=== PATIENT | female | born 1945 | race Caucasian/White ===

== ENCOUNTER 2022-05-17 14:25 | Emergency (ER) | payer MEDICARE, OTHER ==
[2022-05-17 14:47] VITALS: BP 120/49; PULSE 73
== END 2022-05-17 15:46 | disposition home or self-care (01) ==
LOC: DL.ED 14:25
DX: S93.602A Unspecified sprain of left foot, initial encounter (principal); E78.00 Pure hypercholesterolemia, unspecified; K21.9 Gastro-esophageal reflux disease without esophagitis; E03.9 Hypothyroidism, unspecified; Z88.8 Allergy status to other drugs, medicaments and biological substances; Z79.899 Other long term (current) drug therapy; X50.1XXA Overexertion from prolonged static or awkward postures, initial encounter
CPT/HCPCS: 73610-LT; 73630-LT; 99282; 99283

== ENCOUNTER 2022-05-31 13:47 | Emergency (ER) | payer MEDICARE, OTHER ==
[2022-05-31] MEDS ORDERED: Amoxicillin/Clavulanate K 875-125 MG Tab PO ONE ×2 (13:48→14:05)
[2022-05-31] MEDS ORDERED: Diphtheria,Pertussis(Acell),Tetanus Vaccine 0.5 ML Syringe IM ONE (13:58)
[2022-05-31 14:04] VITALS: BP 148/64; PULSE 68
[2022-05-31] MEDS ORDERED: Amoxicillin/Clavulanate K 875-125 MG Tab ONE (14:15)
== END 2022-05-31 14:32 | disposition home or self-care (01) ==
LOC: DL.ED 13:47
DX: S50.871A Other superficial bite of right forearm, initial encounter (principal); E78.00 Pure hypercholesterolemia, unspecified; E03.9 Hypothyroidism, unspecified; K21.9 Gastro-esophageal reflux disease without esophagitis; Z88.8 Allergy status to other drugs, medicaments and biological substances; Z79.899 Other long term (current) drug therapy; W54.0XXA Bitten by dog, initial encounter; Z23 Encounter for immunization
CPT/HCPCS: 90471; 90715; 99283; A9270

== ENCOUNTER 2023-07-08 06:17 | Day surgery (SDC) | payer MEDICARE, BC ==
[2023-07-08] MEDS ORDERED: Proparacaine 0.5% Ophth Soln 15 ML Bottle ONE (06:32)
[2023-07-08] MEDS ORDERED: Cataract Ophth Solution EYERT ONE (07:00)
[2023-07-08] MEDS ORDERED: Povidone-Iodine 5% Sterile Ophth Soln 30 ML Bottle EYERT ONE ×2 (07:00→08:03)
[2023-07-08] MEDS ORDERED: Timolol Maleate 0.5% Ophth Soln 5 ML Bottle EYERT ONE (07:00)
[2023-07-08] MEDS ORDERED: Proparacaine 0.5% Ophth Soln 15 ML Bottle EYERT ONE ×2 (07:00→08:02)
[2023-07-08] MEDS ORDERED: Phenylephrine 10% Ophth Soln 5 ML Bot EYERT PRN (07:00)
[2023-07-08] MEDS ORDERED: Ondansetron 4 MG/2 ML SDV IVPUSH PRN (07:00)
[2023-07-08] MEDS ORDERED: Moxifloxacin 0.5% Ophth Soln 3 ML Bottle EYERT ONE (07:00)
[2023-07-08] MEDS ORDERED: Tropicamide 1% Ophth Soln 15 ML Bottle EYERT ONE (07:00)
[2023-07-08] MEDS ORDERED: Acetaminophen 500 MG Tab PO PRN (08:00)
[2023-07-08] MEDS ORDERED: Acetaminophen/Codeine 300-30 MG Tab PO PRN (08:00)
[2023-07-08] MEDS ORDERED: Acetaminophen 325 MG Tab PO PRN (08:00)
[2023-07-08] MEDS ORDERED: Tobramycin 0.3% Ophth Oint 3.5 GM Tube EYERT ONE (08:03)
[2023-07-08] MEDS ORDERED: Diclofenac Sodium 0.1% Ophth Soln 5 ML Bottle EYERT ONE (08:03)
[2023-07-08] MEDS ORDERED: Apraclonidine 0.5% Ophth Soln 5 ML Bot EYERT ONE (08:03)
[2023-07-08] MEDS ORDERED: Chondroitin Sulfate/Hyaluronate Sodium Ophth Inj 0.75 ML Syringe EYERT ONE (08:04)
[2023-07-08] MEDS ORDERED: Balanced Salt Solution Ophth Irrig 500 ML Bottle IOCULAR ONE (08:04)
[2023-07-08] MEDS ORDERED: Vancomycin 500 MG SDV EYERT ONE (08:04)
[2023-07-08] MEDS ORDERED: Lidocaine 1% 30 ML SDV ONE (08:04)
[2023-07-08 08:40] VITALS: BP 128/49; PULSE 51
== END 2023-07-08 08:41 | disposition home or self-care (01) ==
LOC: DL.SDS 06:17
PROVIDERS: ATTEND Ophthalmology
DX: H25.811 Combined forms of age-related cataract, right eye (principal); F41.9 Anxiety disorder, unspecified; F32.A Depression, unspecified; E78.5 Hyperlipidemia, unspecified; E03.9 Hypothyroidism, unspecified; M85.80 Other specified disorders of bone density and structure, unspecified site; Z88.8 Allergy status to other drugs, medicaments and biological substances; Z79.890 Hormone replacement therapy; Z79.899 Other long term (current) drug therapy
CPT/HCPCS: 66984; A9270; J3370; J3490

== ENCOUNTER 2023-07-22 06:20 | Day surgery (SDC) | payer MEDICARE, BC ==
[~2023-07-22 06:20] MED LIST: Acetaminophen 325 MG Tab PO PRN; Acetaminophen/Codeine 300-30 MG Tab PO PRN; Ondansetron 4 MG/2 ML SDV IVPUSH PRN
[2023-07-22] MEDS ORDERED: Povidone-Iodine 5% Sterile Ophth Soln 30 ML Bottle EYELF ONE ×2 (06:45→08:43)
[2023-07-22] MEDS ORDERED: Tropicamide 1% Ophth Soln 15 ML Bottle EYELF ONE (06:45)
[2023-07-22] MEDS ORDERED: Timolol Maleate 0.5% Ophth Soln 5 ML Bottle EYELF ONE (06:45)
[2023-07-22] MEDS ORDERED: Moxifloxacin 0.5% Ophth Soln 3 ML Bottle EYELF ONE (06:45)
[2023-07-22] MEDS ORDERED: Phenylephrine 10% Ophth Soln 5 ML Bot EYELF PRN (06:45)
[2023-07-22] MEDS ORDERED: Proparacaine 0.5% Ophth Soln 15 ML Bottle EYELF ONE ×2 (06:45→08:38)
[2023-07-22] MEDS ORDERED: Cataract Ophth Solution EYELF ONE (06:45)
[2023-07-22] MEDS ORDERED: Proparacaine 0.5% Ophth Soln 15 ML Bottle ONE (06:54)
[2023-07-22] MEDS ORDERED: Lidocaine 1% 30 ML SDV ONE (08:45)
[2023-07-22] MEDS ORDERED: Balanced Salt Solution Ophth Irrig 500 ML Bottle EYELF ONE (08:46)
[2023-07-22] MEDS ORDERED: Vancomycin 500 MG SDV EYELF ONE (08:47)
[2023-07-22] MEDS ORDERED: Chondroitin Sulfate/Hyaluronate Sodium Ophth Inj 0.5 ML Syringe IOCULAR ONE (08:48)
[2023-07-22] MEDS ORDERED: Chondroitin Sulfate/Hyaluronate Sodium Ophth Inj 0.75 ML Syringe EYELF ONE (08:49)
[2023-07-22] MEDS ORDERED: Dexamethasone/Neomycin/Polymyxin B Ophth Oint 3.5 GM Tube EYELF ONE (08:51)
[2023-07-22] MEDS ORDERED: Diclofenac Sodium 0.1% Ophth Soln 5 ML Bottle EYELF ONE (08:51)
[2023-07-22] MEDS ORDERED: Apraclonidine 0.5% Ophth Soln 5 ML Bot EYELF ONE (08:51)
[2023-07-22 09:58] VITALS: BP 116/54; PULSE 56
== END 2023-07-22 09:15 | disposition home or self-care (01) ==
LOC: DL.SDS 06:20
PROVIDERS: ATTEND Ophthalmology
DX: H25.812 Combined forms of age-related cataract, left eye (principal); E03.9 Hypothyroidism, unspecified; E78.5 Hyperlipidemia, unspecified; F41.9 Anxiety disorder, unspecified; F32.A Depression, unspecified; Z79.890 Hormone replacement therapy; Z79.899 Other long term (current) drug therapy; Z88.8 Allergy status to other drugs, medicaments and biological substances
CPT/HCPCS: A9270-GY; J3370; J3490; V2632